=== PATIENT | female | born 1990 | race Caucasian/White ===

== ENCOUNTER 2022-02-09 15:34 | Emergency (ER) | payer MEDICAID ==
[2022-02-09] MEDS ORDERED: Ondansetron 4 MG/2 ML SDV IVPUSH ONE (16:20)
[2022-02-09] MEDS ORDERED: Lactated Ringers 1,000 ML IV ONE (16:20)
[2022-02-09] MEDS ORDERED: Sodium Chloride 0.9% 10 ML Syringe FLUSH PRN ×2 (16:20)
[2022-02-09] MEDS ORDERED: Ketorolac 30 MG/ML SDV IVPUSH ONE (16:34)
[2022-02-09 17:23] LABS: CORONAVIRUS COVID-19 NAA NEGATIVE (NEGATIVE)
== END 2022-02-09 17:55 | disposition home or self-care (01) ==
LOC: JP.ED 15:34
DX: K52.9 Noninfective gastroenteritis and colitis, unspecified (principal); Z20.822 Contact with and (suspected) exposure to COVID-19
CPT/HCPCS: 0241U; 36415; 80053; 81001; 83605; 85025; 87086; 87088; 87186; 96374; 96375; 99284; J1885; J2405; J3490; J7120

== ENCOUNTER 2022-07-13 17:02 | Emergency (ER) | payer MEDICAID | END 2022-07-13 18:07 | disposition home or self-care (01) | LOC: JP.ED 17:02 | DX: N39.0 Urinary tract infection, site not specified (principal) | CPT/HCPCS: 81001; 87086; 99283 ==

== ENCOUNTER 2024-12-16 23:56 | Emergency (ER) | payer MEDICAID ==
[2024-12-17] MEDS: Ibuprofen 600 MG Tab PO ONE (02:27)
== END 2024-12-17 02:54 | disposition home or self-care (01) ==
LOC: JP.ED 23:56
DX: S00.03XA Contusion of scalp, initial encounter (principal); W00.0XXA Fall on same level due to ice and snow, initial encounter
CPT/HCPCS: 70450; 73110; 99284; A9270